=== PATIENT | female | born 1960 | race Caucasian/White ===

== ENCOUNTER 2017-10-28 06:01 | Day surgery (SDC) | payer OTHER ==
[2017-10-28] MEDS ORDERED: LIDOCAINE 2% (SDV) 5 ML INJ (07:39)
[2017-10-28] MEDS ORDERED: PROPOFOL 60 ML (07:39)
== END 2017-10-28 16:55 | disposition home or self-care (01) ==
LOC: GIL 06:01
DX: Z12.11 Encounter for screening for malignant neoplasm of colon (principal); K64.8 Other hemorrhoids; I10 Essential (primary) hypertension; E78.5 Hyperlipidemia, unspecified; E11.9 Type 2 diabetes mellitus without complications; E66.9 Obesity, unspecified; Z68.34 Body mass index [BMI] 34.0-34.9, adult
CPT/HCPCS: 45378; 82962